=== PATIENT | female | born 1980 | race American Indian/Alaskan Native ===

== ENCOUNTER 2020-03-21 01:14 | Emergency (ER) | payer SELFPAY ==
--- NOTE | 2020-03-21 08:16 | Emergency Department Report ---
HPI - General Chief Complaint: Allergic Reaction Time Seen by Provider: 03/21/20 08:04 ED Past Medical Hx - Past Medical History Previous Medical History?: No - Surgical History Past Surgical History?: No - Social History Smoking Status: Never Smoker Substance Use Type: None ED Review of Systems ROS: Stated complaint: ALLERGIC REACTION Other details as noted in HPI Physical Exam - Physical Exam Vital Signs: Vital Signs 03/21/20 03/21/20 01:26 06:30 Temperature 98.1 F 98.4 F Pulse Rate 80 88 Respiratory 18 18 Rate Blood Pressure 166/100 Blood Pressure 167/106 [Right] O2 Sat by Pulse 100 98 Oximetry ED Course Vital Signs 03/21/20 03/21/20 01:26 06:30 Temperature 98.1 F 98.4 F Pulse Rate 80 88 Respiratory 18 18 Rate Blood Pressure 166/100 Blood Pressure 167/106 [Right] O2 Sat by Pulse 100 98 Oximetry Critical care attestation.: If time is entered above; I have spent that time in minutes in the direct care of this critically ill patient, excluding procedure time. ED Disposition Condition: Stable Referrals: PRIMARY MD CAMERON [Primary Care Provider] - 3-5 Days
--- NOTE | 2020-03-21 08:38 | Emergency Department Report ---
ED General Adult HPI - General Chief complaint: Allergic Reaction Stated complaint: ALLERGIC REACTION Time Seen by Provider: 03/21/20 08:04 Source: patient Mode of arrival: Ambulatory Limitations: No Limitations - History of Present Illness Initial comments: 39 yo AA F pt presents with complaints of itchiness to the scalp from an allergic reaction to hair dye x 1 week. Pt reports she was seen at an urgent care and was prescribed a few days of steroids and Bactrim. She states her symptoms initially improved and began to worsen again 2 days ago. She now has clearish drainage to the scalp that is crusting. She denies any pain or redness. - Related Data Previous Rx's Medication Instructions Recorded Last Taken Type Loratadine 10 mg PO QDAY #10 tablet 03/21/20 Unknown Rx Triamcinolone Acetonide 1 gm TP TID 4 Days #3 cream..g. 03/21/20 Unknown Rx methylPREDNISolone [Medrol 4MG 4 mg PO UNK #1 tab.ds.pk 03/21/20 Unknown Rx DOSEPAK (21 tabs)] Allergies Allergy/AdvReac Type Severity Reaction Status Date / Time No Known Allergies Allergy Unverified 03/21/20 01:37 ED Review of Systems ROS: Stated complaint: ALLERGIC REACTION Other details as noted in HPI Constitutional: denies: chills, diaphoresis, fever, malaise ENT: denies: throat pain Respiratory: denies: cough, shortness of breath Cardiovascular: denies: chest pain Skin: rash, lesions Hematological/Lymphatic: denies: easy bleeding ED Past Medical Hx - Past Medical History Previous Medical History?: No - Surgical History Past Surgical History?: No - Social History Smoking Status: Never Smoker Substance Use Type: None - Medications Home Medications: Home Medications Medication Instructions Recorded Confirmed Last Taken Type Loratadine 10 mg PO QDAY #10 tablet 03/21/20 Unknown Rx Triamcinolone Acetonide 1 gm TP TID 4 Days #3 cream..g. 03/21/20 Unknown Rx methylPREDNISolone [Medrol 4MG 4 mg PO UNK #1 tab.ds.pk 03/21/20 Unknown Rx DOSEPAK (21 tabs)] ED Physical Exam - General Limitations: No Limitations General appearance: alert, in no apparent distress - Head Head exam: Present: atraumatic, normocephalic - Eye Eye exam: Present: normal appearance. Absent: scleral icterus - ENT ENT exam: Present: normal exam - Neck Neck exam: Present: normal inspection - Respiratory Respiratory exam: Absent: respiratory distress, wheezes - Cardiovascular Cardiovascular Exam: Present: regular rate - Extremities Exam Extremities exam: Present: normal inspection - Neurological Exam Neurological exam: Present: alert, oriented X3 - Psychiatric Psychiatric exam: Present: normal affect, normal mood - Skin Skin exam: Present: warm, dry, rash (weeping contact dermatitis rash noted diffusely to scalp without erythema or tenderness to palpation; diffuse active serous drainage is noted) ED Course Vital Signs 03/21/20 03/21/20 01:26 06:30 Temperature 98.1 F 98.4 F Pulse Rate 80 88 Respiratory 18 18 Rate Blood Pressure 166/100 Blood Pressure 167/106 [Right] O2 Sat by Pulse 100 98 Oximetry ED Medical Decision Making - Medical Decision Making 39 yo AA F pt presents with complaints of itchiness to the scalp from an allergic reaction to hair dye x 1 week. Pt reports she was seen at an urgent care and was prescribed a few days of steroids and Bactrim. She states her symptoms initially improved and began to worsen again 2 days ago. She now has clearish drainage to the scalp that is crusting. She denies any pain or redness. Contact dermatitis noted on exam. Rx for medrol dose pack and claritin given. Pt to follow-up with PCP in 3 days. Discussed signs and symptoms that should prompt immediate return to the emergency department in detail with patient who verbalizes understanding. Critical care attestation.: If time is entered above; I have spent that time in minutes in the direct care of this critically ill patient, excluding procedure time. ED Disposition Clinical Impression: Contact dermatitis Qualifiers: Contact dermatitis type: allergic Contact dermatitis trigger: dye Qualified Code(s): L23.4 - Allergic contact dermatitis due to dyes Disposition: DC-01 TO HOME OR SELFCARE Is pt being admited?: No Condition: Stable Instructions: Contact Dermatitis (ED) Prescriptions: Loratadine 10 mg PO QDAY #10 tablet methylPREDNISolone [Medrol 4MG DOSEPAK (21 tabs)] 4 mg PO UNK #1 tab.ds.pk Triamcinolone Acetonide 1 gm TP TID 4 Days #3 cream..g. Referrals: PRIMARY CARE,MD [Primary Care Provider] - 3-5 Days
[2020-03-21] MEDS ORDERED: dexAMETHasone 20 MG/5 ML VIAL IV ONE (08:51)
[2020-03-21 09:25] VITALS: BP 163/103
== END 2020-03-21 09:26 | disposition home or self-care (01) ==
LOC: ED 01:14
DX: L23.4 Allergic contact dermatitis due to dyes (principal); Z79.899 Other long term (current) drug therapy
CPT/HCPCS: 96374; 99282; J1100

== ENCOUNTER 2022-02-19 07:29 | Emergency (ER) | payer SELFPAY ==
[2022-02-19 07:43] VITALS: BP 166/100
[2022-02-19] MEDS ORDERED: FAMOTIDINE 20 MG TAB PO ONE (10:01)
[2022-02-19] MEDS ORDERED: predniSONE 20 MG TAB PO ONE (10:01)
--- NOTE | 2022-02-19 10:27 | Emergency Department Report ---
HPI - General Chief Complaint: Allergic Reaction Time Seen by Provider: 02/19/22 09:27 ED Past Medical Hx - Past Medical History Hx Hypertension: Yes - Surgical History Past Surgical History?: No - Social History Smoking Status: Never Smoker Substance Use Type: None - Medications Home Medications: Home Medications Medication Instructions Recorded Confirmed Last Taken Type Loratadine 10 mg PO QDAY #10 tablet 03/21/20 Unknown Rx Triamcinolone Acetonide 1 gm TP TID 4 Days #3 cream..g. 03/21/20 Unknown Rx methylPREDNISolone [Medrol 4MG 4 mg PO UNK #1 tab.ds.pk 03/21/20 Unknown Rx DOSEPAK (21 tabs)] hydrOXYzine PAMOATE [Vistaril] 25 mg PO Q6HR PRN #30 capsule 02/19/22 Unknown Rx predniSONE [Deltasone] 50 mg PO QDAY #5 tab 02/19/22 Unknown Rx ED Review of Systems ROS: Stated complaint: SKIN RASH Other details as noted in HPI Comment: All other systems reviewed and negative Constitutional: denies: chills, fever Eyes: denies: vision change Respiratory: denies: shortness of breath, SOB with exertion, SOB at rest, wheezing Cardiovascular: denies: chest pain, palpitations Gastrointestinal: denies: abdominal pain, nausea, vomiting Musculoskeletal: denies: back pain Skin: rash Neurological: denies: headache, weakness Physical Exam - Physical Exam Vital Signs: Vital Signs 02/19/22 02/19/22 07:34 09:54 Temperature 98.7 F Pulse Rate 76 Respiratory 14 18 Rate Blood Pressure 166/100 [Right] O2 Sat by Pulse 98 100 Oximetry ED Course Vital Signs 02/19/22 02/19/22 07:34 09:54 Temperature 98.7 F Pulse Rate 76 Respiratory 14 18 Rate Blood Pressure 166/100 [Right] O2 Sat by Pulse 98 100 Oximetry ED Medical Decision Making - Medical Decision Making 41-year-old black female with no past medical history presents to the emergency department for evaluation of 3-day history of possible allergic reaction. She states that she woke up 3 days ago with diffuse rash to her bilateral arms that got worse over the next 2 days. She states that she woke up this morning and she had hives over her entire upper and lower extremities. She states that she also has some swelling in her face and her lips. She denies chest tightness and shortness of breath. Patient be discharged home with 5-day course of steroids along with Vistaril to use as needed. She is advised to follow-up with clinical education consultant for further evaluation and management and return to the emergency department as needed. She verbalizes understanding of and agreement with plan of care. Critical care attestation.: If time is entered above; I have spent that time in minutes in the direct care of this critically ill patient, excluding procedure time. ED Disposition Clinical Impression: Contact dermatitis Qualifiers: Contact dermatitis type: unspecified Contact dermatitis trigger: unspecified trigger Qualified Code(s): L25.9 - Unspecified contact dermatitis, unspecified cause Disposition: HOME / SELF CARE / HOMELESS Is pt being admited?: No Does the pt Need Aspirin: No Condition: Stable Instructions: Contact Dermatitis, [id number] Additional Instructions: Take medications as prescribed. Follow-up with your primary care provider or clinical education consultant if no improvement or worsening symptoms. Return to the emergency department as needed. Prescriptions: predniSONE [Deltasone] 50 mg PO QDAY #5 tab hydrOXYzine PAMOATE [Vistaril] 25 mg PO Q6HR PRN #30 capsule PRN Reason: Itching Referrals: MARIANNA PLUNKETT MD [Staff Physician] - 3-5 Days KAVON PATTERSON MD [Staff Physician] - 3-5 Days Forms: Work/School Release Form(ED) Time of Disposition: 10:27 ED Allergic Reaction HPI - General Chief complaint: Allergic Reaction Stated complaint: SKIN RASH Time Seen by Provider: 02/19/22 09:27 Source: patient Mode of arrival: Ambulatory Limitations: No Limitations - History of Present Illness Initial Comments: 41-year-old black female with no past medical history presents to the emergency department for evaluation of 3-day history of possible allergic reaction. She states that she woke up 3 days ago with diffuse rash to her bilateral arms that got worse over the next 2 days. She states that she woke up this morning and she had hives over her entire upper and lower extremities. She states that she also has some swelling in her face and her lips. She denies chest tightness and shortness of breath. Complaint: allergic reaction, hives -: Sudden, days(s) (3) Exposure: unknown Symptoms: rash, facial swelling Severity: moderate Treatment Prior to Arrival: none Previous Allergy History: none - Related Data Previous Rx's Medication Instructions Recorded Last Taken Type Loratadine 10 mg PO QDAY #10 tablet 03/21/20 Unknown Rx Triamcinolone Acetonide 1 gm TP TID 4 Days #3 cream..g. 03/21/20 Unknown Rx methylPREDNISolone [Medrol 4MG 4 mg PO UNK #1 tab.ds.pk 03/21/20 Unknown Rx DOSEPAK (21 tabs)] hydrOXYzine PAMOATE [Vistaril] 25 mg PO Q6HR PRN #30 capsule 02/19/22 Unknown Rx predniSONE [Deltasone] 50 mg PO QDAY #5 tab 02/19/22 Unknown Rx Allergies Allergy/AdvReac Type Severity Reaction Status Date / Time No Known Allergies Allergy Verified 02/19/22 07:40 ED ALLG RXN EXAM - General General appearance: alert, in no apparent distress Limitations: No Limitations Head exam: Positive: atraumatic, normocephalic Eye exam: normal appearance ENT Exam: Positive: Tolerating Secretions, Lip Edema. Negative: Drooling, Muffled Voice, Facial Edema, Tongue Edema, Uvular Edema Neck exam: Positive: normal inspection. Negative: tenderness, lymphadenopathy Respiratory exam: Positive: normal lung sounds bilaterally. Negative: respiratory distress, wheezes, rales, rhonchi, stridor, chest wall tenderness Cardiovascular Exam: Positive: regular rate, normal heart sounds GI/Abdominal exam: Positive: soft, normal bowel sounds. Negative: distended, tenderness Extremities exam: Positive: full ROM, normal capillary refill, other (diffuse urticarial rash to bilateral legs and arms. ). Negative: tenderness Back exam: normal inspection Neurological exam: Positive: alert, oriented X3, normal gait Psychiatric exam: Positive: normal affect, normal mood Skin exam: Positive: warm, dry, intact, rash, erythema, urticaria
== END 2022-02-19 11:01 | disposition home or self-care (01) ==
LOC: ED 07:29
DX: L50.9 Urticaria, unspecified (principal)
CPT/HCPCS: 99282